=== PATIENT | female | born 1985 | race African-American/Black ===

== ENCOUNTER 2018-10-06 06:53 | Emergency (ER) | payer SELFPAY ==
[~2018-10-06] VITALS: Ht 165.1 cm; Wt 90.7 kg
[2018-10-06 07:29] VITALS: BP 130/88
== END 2018-10-06 09:16 | disposition home or self-care (01) ==
LOC: ER 06:53
DX: K04.7 Periapical abscess without sinus (principal); B35.3 Tinea pedis

== ENCOUNTER 2021-10-10 11:06 | Emergency (ER) | payer MEDICAID ==
[~2021-10-10] VITALS: Ht 167.6 cm; Wt 86.2 kg
[2021-10-10 12:39] VITALS: BP 123/75
[2021-10-10] MEDS ORDERED: IBUP800T27 PO (12:51)
[2021-10-10] MEDS ORDERED: CLIN300C8 PO (12:51)
== END 2021-10-10 13:07 | disposition home or self-care (01) ==
LOC: ER 11:06
DX: K02.9 Dental caries, unspecified (principal); Z79.1 Long term (current) use of non-steroidal anti-inflammatories (NSAID); Z79.2 Long term (current) use of antibiotics

== ENCOUNTER 2021-11-25 03:40 | Emergency (ER) | payer MEDICAID ==
[~2021-11-25] VITALS: Ht 165.1 cm; Wt 86.2 kg
[~2021-11-25 03:40] MED LIST: CLIN300C8 PO; IBUP800T27 PO
[2021-11-25 05:26] VITALS: BP 141/86
[2021-11-25] MEDS ORDERED: KETOROLAC TROMETH 60MG/2ML VIAL IM ONE (05:30)
[2021-11-25] MEDS ORDERED: IBUP800T27 PO (05:40)
[2021-11-25] MEDS ORDERED: CLIN300C8 PO (05:40)
== END 2021-11-25 06:26 | disposition home or self-care (01) ==
LOC: ER 03:40
DX: K02.9 Dental caries, unspecified (principal); Z79.1 Long term (current) use of non-steroidal anti-inflammatories (NSAID); Z79.2 Long term (current) use of antibiotics

== ENCOUNTER → 2022-07-06 | Emergency (ER) | payer OTHER, MEDICAID | END | disposition left against medical advice (07) | LOC: ER 03:37 | DX: R52 Pain, unspecified (principal); Z53.21 Procedure and treatment not carried out due to patient leaving prior to being seen by health care provider ==

== ENCOUNTER 2024-05-12 14:17 | Emergency (ER) | payer MEDICAID, OTHER ==
[~2024-05-12] VITALS: Ht 165.1 cm; Wt 97.3 kg
[~2024-05-12 14:17] MED LIST changes: +CLIN1CAP70 PO; -CLIN300C8 PO; +IBUP-1456 PO; -IBUP800T27 PO
[2024-05-12 15:11] VITALS: BP 134/86; PULSE 80; RESP 18; TEMP 98.4; O2SAT 99
== END 2024-05-12 20:36 | disposition left against medical advice (07) ==
LOC: ER 14:17
DX: K08.89 Other specified disorders of teeth and supporting structures (principal); Z53.21 Procedure and treatment not carried out due to patient leaving prior to being seen by health care provider